=== PATIENT | female | born 1960 | race American Indian/Alaskan Native ===

== ENCOUNTER 2016-08-23 09:34 | Emergency (ER) | payer MEDICAID, OTHER ==
[2016-08-23] MEDS ORDERED: NACL 0.9% 1000 ML 1,000 ML IV ONE (09:45)
[2016-08-23 10:21] LABS: Basophils % (Auto) 0.9 % (0.0-1.8); Eosinophils % (Auto) 1.4 % (0.0-4.3); Hematocrit 48.4 % (30.3-42.9); Hemoglobin 15.9 gm/dl (10.1-14.3); Mean Corpuscular HGB Conc 33 % (30-34); Mean Corpuscular Hemoglobin 31 pg (28-32); Mean Corpuscular Volume 93 fl (79-97); Platelet Count 264 K/mm3 (140-440); Red Blood Count 5.21 M/mm3 (3.65-5.03); Red Cell Distribution Width 14.7 % (13.2-15.2); White Blood Count 6.4 K/mm3 (4.5-11.0)
[2016-08-23 10:31] LABS: INR 0.94 (0.87-1.13)
[2016-08-23 10:32] LABS: Partial Thromboplastin Time 29.1 Sec. (24.2-36.6)
[2016-08-23 10:38] LABS: Alanine Aminotransferase 92 units/L (7-56); Albumin 4.4 g/dL (3.9-5); Alkaline Phosphatase 159 units/L (35-129); Anion Gap 19 mmol/L; BUN/Creatinine Ratio 11.42; Bilirubin,Total 0.5 mg/dL (0.1-1.2); Blood Urea Nitrogen 8 mg/dL (7-17); Calcium 9.6 mg/dL (8.4-10.2); Carbon Dioxide 26 mmol/L (22-30); Chloride 97.8 mmol/L (98-107); Glucose 105 mg/dL (65-100); Lipase 26 units/L (13-60); Potassium 3.9 mmol/L (3.6-5.0); Sodium 139 mmol/L (137-145); Total Protein 8.6 g/dL (6.3-8.2)
[2016-08-23 13:26] VITALS: BP 182/104
--- NOTE | 2016-08-23 13:31 | Emergency Department Report ---
ED General Adult HPI - General Chief complaint: GI Bleed Stated complaint: BLOOD IN STOOL Time Seen by Provider: 08/23/16 13:13 Source: patient Mode of arrival: Ambulatory Limitations: No Limitations - History of Present Illness Initial comments: The patient noted a small amount of blood admixed with normal stool for the past 3 days intermittently. She has never had a colonoscopy. She does not complain of any proctalgia. She's had some crampy lower abdominal pain but it is not currently present. There's been no fever no chills no nausea no vomiting no upper abdominal pain. She does not go to a physician she is noncompliant with her blood pressure regimen. -: days(s) Location: abdomen Radiation: non-radiation Quality: other Consistency: now resolved Improves with: none Worsens with: none Associated Symptoms: denies other symptoms - Related Data Previous Rx's Medication Instructions Recorded Last Taken Type Ibuprofen [Motrin 600 MG tab] 600 mg PO Q8H PRN #14 tablet 11/03/15 Unknown Rx traMADol [Ultram] 50 mg PO Q6HR PRN #10 tablet 11/03/15 Unknown Rx Lisinopril/Hydrochlorothiazide 1 each PO QDAY #30 tablet 08/23/16 Unknown Rx [Zestoretic 20-12.5 mg] traMADol [Ultram] 50 mg PO Q6HR PRN #10 tablet 08/23/16 Unknown Rx Allergies Allergy/AdvReac Type Severity Reaction Status Date / Time No Known Allergies Allergy Verified 07/05/14 05:11 ED Review of Systems ROS: Stated complaint: BLOOD IN STOOL Other details as noted in HPI Constitutional: denies: chills, fever Eyes: denies: eye pain, eye discharge, vision change ENT: denies: ear pain, throat pain Respiratory: denies: cough, shortness of breath, wheezing Cardiovascular: denies: chest pain, palpitations Endocrine: no symptoms reported Gastrointestinal: abdominal pain. denies: nausea, diarrhea Genitourinary: denies: urgency, dysuria, discharge Musculoskeletal: denies: back pain, joint swelling, arthralgia Skin: denies: rash, lesions Neurological: denies: headache, weakness, paresthesias Psychiatric: denies: anxiety, depression Hematological/Lymphatic: denies: easy bleeding, easy bruising ED Past Medical Hx - Past Medical History Previous Medical History?: Yes Hx Hypertension: Yes Additional medical history: Post menopausal bleeding - Surgical History Past Surgical History?: Yes Additional Surgical History: c-sect, [place] carpel tunnel release - Social History Smoking Status: Current Every Day Smoker Substance Use Type: Alcohol, Prescribed - Medications Home Medications: Home Medications Medication Instructions Recorded Confirmed Last Taken Type Ibuprofen [Motrin 600 MG tab] 600 mg PO Q8H PRN #14 tablet 11/03/15 Unknown Rx traMADol [Ultram] 50 mg PO Q6HR PRN #10 tablet 11/03/15 Unknown Rx Lisinopril/Hydrochlorothiazide 1 each PO QDAY #30 tablet 08/23/16 Unknown Rx [Zestoretic 20-12.5 mg] traMADol [Ultram] 50 mg PO Q6HR PRN #10 tablet 08/23/16 Unknown Rx ED Physical Exam - General Limitations: No Limitations General appearance: alert, in no apparent distress - Head Head exam: Present: atraumatic, normocephalic - Eye Eye exam: Present: normal appearance - ENT ENT exam: Present: mucous membranes moist - Neck Neck exam: Present: normal inspection - Respiratory Respiratory exam: Present: normal lung sounds bilaterally. Absent: respiratory distress - Cardiovascular Cardiovascular Exam: Present: regular rate, normal rhythm. Absent: systolic murmur, diastolic murmur, rubs, gallop - GI/Abdominal GI/Abdominal exam: Present: soft, normal bowel sounds. Absent: distended, tenderness, guarding, rebound, rigid - Extremities Exam Extremities exam: Present: normal inspection, normal capillary refill. Absent: tenderness, pedal edema, joint swelling, calf tenderness - Back Exam Back exam: Present: normal inspection. Absent: CVA tenderness (R), CVA tenderness (L) - Neurological Exam Neurological exam: Present: alert, oriented X3, CN II-XII intact. Absent: motor sensory deficit - Psychiatric Psychiatric exam: Present: normal affect, normal mood - Skin Skin exam: Present: warm, dry, intact, normal color. Absent: rash ED Course Vital Signs 08/23/16 08/23/16 09:40 13:25 Temperature 97.7 F Pulse Rate 76 72 Respiratory 18 16 Rate Blood Pressure 221/124 Blood Pressure 182/104 [Left] O2 Sat by Pulse 99 99 Oximetry - Reevaluation(s) Reevaluation #1: Patient's blood pressure spontaneously improved to 180/100. She is essentially now asymptomatic. Importance of follow-up with referrals as been emphasized. 08/23/16 13:30 ED Medical Decision Making - Lab Data Result diagrams: 08/23/16 10:02 08/23/16 10:02 Laboratory Results - last 24 hr 08/23/16 08/23/16 08/23/16 10:02 10:02 10:02 WBC 6.4 RBC 5.21 H Hgb 15.9 H Hct 48.4 H MCV 93 MCH 31 MCHC 33 RDW 14.7 Plt Count 264 Lymph % (Auto) 30.0 [place] % (Auto) 8.4 H Eos % (Auto) 1.4 Baso % (Auto) 0.9 Lymph # 1.9 [place] # 0.5 Eos # 0.1 Baso # 0.1 Seg Neutrophils % 59.3 Seg Neutrophils # 3.8 PT 12.5 INR 0.94 APTT 29.1 Sodium 139 Potassium 3.9 Chloride 97.8 L Carbon Dioxide 26 Anion Gap 19 BUN 8 Creatinine 0.7 Estimated GFR > 60 BUN/Creatinine Ratio 11.42 Glucose 105 H Calcium 9.6 Total Bilirubin 0.5 AST 99 H ALT 92 H Alkaline Phosphatase 159 H Total Protein 8.6 H Albumin 4.4 Albumin/Globulin Ratio 1.0 Lipase 26 Blood Type Antibody Screen 08/23/16 10:04 WBC RBC Hgb Hct MCV MCH MCHC RDW Plt Count Lymph % (Auto) [place] % (Auto) Eos % (Auto) Baso % (Auto) Lymph # [place] # Eos # Baso # Seg Neutrophils % Seg Neutrophils # PT INR APTT Sodium Potassium Chloride Carbon Dioxide Anion Gap BUN Creatinine Estimated GFR BUN/Creatinine Ratio Glucose Calcium Total Bilirubin AST ALT Alkaline Phosphatase Total Protein Albumin Albumin/Globulin Ratio Lipase Blood Type O POSITIVE Antibody Screen Negative - EKG Data -: EKG Interpreted by Me EKG shows normal: sinus rhythm, axis, intervals, QRS complexes, ST-T waves Rate: normal - EKG Data Interpretation: nonspecific ST-T wave belem Critical care attestation.: If time is entered above; I have spent that time in minutes in the direct care of this critically ill patient, excluding procedure time. ED Disposition Clinical Impression: Lower GI bleeding, Uncontrolled hypertension, Medical non-compliance Disposition: DISCHARGED TO HOME OR SELFCARE Is pt being admited?: No Does the pt Need Aspirin: No Condition: Stable Instructions: Hypertension (ED), Rectal Bleeding (ED) Additional Instructions: Further evaluation with a GI specialist is required. Follow-up on your blood pressure is required. Return any acute change or worsening symptoms. Prescriptions: Lisinopril/Hydrochlorothiazide [Zestoretic 20-12.5 mg] 1 each PO QDAY #30 tablet traMADol [Ultram] 50 mg PO Q6HR PRN #10 tablet PRN Reason: Pain Referrals: PRIMARY CARE, [Primary Care Provider] - 3-5 Days [facility] [Provider Group] - 3-5 Days [facility] [Provider Group] - 3-5 Days Forms: Accompanied Note Time of Disposition: 13:33
[2016-08-23] MEDS ORDERED: CATAPRES PO ONE (13:38)
== END 2016-08-23 14:10 | disposition home or self-care (01) ==
LOC: ED 09:34
DX: K92.2 Gastrointestinal hemorrhage, unspecified (principal); I10 Essential (primary) hypertension; Z91.14 Patient's other noncompliance with medication regimen; F17.200 Nicotine dependence, unspecified, uncomplicated
CPT/HCPCS: 36415; 80053; 83690; 85025; 85610; 85730; 86850; 86900; 86901; 93005; 93010; 99284